=== PATIENT | male | born 1990 | race African-American/Black ===

== ENCOUNTER 2017-12-09 20:56 | Emergency (ER) | payer MEDICAID ==
[~2017-12-09] VITALS: Ht 175.3 cm; Wt 87.0 kg
[2017-12-09 22:23] VITALS: BP 143/83
== END 2017-12-09 23:15 | disposition left against medical advice (07) ==
LOC: ER 20:56
DX: S81.801A Unspecified open wound, right lower leg, initial encounter (principal); Z53.21 Procedure and treatment not carried out due to patient leaving prior to being seen by health care provider; W26.8XXA Contact with other sharp object(s), not elsewhere classified, initial encounter; Y93.89 Activity, other specified; Y92.89 Other specified places as the place of occurrence of the external cause; Y99.8 Other external cause status